=== PATIENT | female | born 1995 | race Caucasian/White ===

== ENCOUNTER 2020-08-30 07:18 | Emergency (ER) | payer OTHER ==
[~2020-08-30] VITALS: Ht 172.7 cm; Wt 72.4 kg
[2020-08-30 07:20] VITALS: BP 155/85
--- NOTE | 2020-08-30 07:54 | NUR ---
PT IN IMAGING
[2020-08-30 08:03] LABS: BASOPHILS % (AUTO) 0 % (0-1); EOSINOPHILS % (AUTO) 1 % (1-7); LYMPHOCYTES % (AUTO) 14 % (22-44); MEAN CORPUSCULAR HEMOGLOBIN 30.5 pg (27.0-34.8); MEAN CORPUSCULAR HGB CONC 33.3 g/dL (32.4-35.8); MEAN PLATELET VOLUME 8.8 fL (7.4-10.4); MONOCYTES % (AUTO) 4 % (2-9); NEUTROPHILS % (AUTO) 82 % (42-75); PLATELET COUNT 270 x10^3/uL (130-400); RED BLOOD COUNT 4.44 x10^6/uL (3.82-5.3); RED CELL DISTRIBUTION WIDTH 12.5 % (9.6-15.2)
[2020-08-30 08:04] LABS: MD NO
--- NOTE | 2020-08-30 08:20 | NUR ---
PT STATES SHE IS 11 WEEKS PREG, HAS CO SPOTTING. DENIES CRAMPING
[2020-08-30 08:52] LABS: ANION GAP 7 mmol/L (5-15); CALCIUM 9.4 mg/dL (8.5-10.1); CHLORIDE 109 mmol/L (98-107); CREATININE 0.79 mg/dL (0.55-1.02)
[2020-08-30 08:53] LABS: ALBUMIN 3.4 g/dL (3.4-5.0)
[2020-08-30 09:32] LABS: MICROSCOPIC INDICATED
== END 2020-08-30 10:22 | disposition home or self-care (01) ==
LOC: ED 07:41
DX: O20.0 Threatened abortion (principal); N30.00 Acute cystitis without hematuria; R10.2 Pelvic and perineal pain; Z3A.11 11 weeks gestation of pregnancy
CPT/HCPCS: 36415; 76801; 80048; 81001; 82040; 84702; 85025; 86901; 87086; 99284

== ENCOUNTER 2021-03-13 02:10 | Inpatient (IN) | payer BC, MEDICAID ==
[~2021-03-13] VITALS: Ht 172.7 cm; Wt 89.0 kg
[2021-03-13] MEDS ORDERED: [UNRECOGNIZED DRUG - CODE] PO (08:47)
[2021-03-13 21:25] VITALS: BP 128/87
[2021-03-13] MEDS ORDERED: TERBUTALINE 1 MG/ML, 1ML IVPush PRN (22:00)
[2021-03-13] MEDS ORDERED: FENTANYL PF 100 MCG/2ML IV PRN (22:00)
[2021-03-13] MEDS ORDERED: OXYTOCIN 30U/ 0.9% NaCL 500ML 500 ML IV PRN ×2 (22:00→22:30)
[2021-03-13] MEDS: D5%-LACTATED RINGERS 1,000 ML IV SCH (22:00)
[2021-03-13] MEDS ORDERED: ONDANSETRON 2MG/ML, 2ML IVPush PRN (22:00)
[2021-03-13] MEDS ORDERED: FENTANYL PF 100 MCG/2ML IVPush PRN (22:00)
[2021-03-13] MEDS ORDERED: PENICILLIN GK 5,000,000 UNITS in DEXTROSE 5% 100 ML IVPB ONE (22:00)
[2021-03-13] MEDS ORDERED: TERBUTALINE 1 MG/ML, 1ML SQ PRN (22:00)
[2021-03-13] MEDS ORDERED: CALCIUM CARBONATE 500 MG TAB.CHEW PO PRN (22:00)
[2021-03-13] MEDS ORDERED: MISOPROSTOL 25 MCG TABLET VG PRN (22:00)
[2021-03-13] MEDS ORDERED: OXYTOCIN 30U/ 0.9% NaCL 500ML 500 ML IV ONE (22:00)
[2021-03-13 22:15] LABS: BASOPHILS % (AUTO) 1 % (0-1); EOSINOPHILS % (AUTO) 1 % (1-7); LYMPHOCYTES % (AUTO) 23 % (22-44); MEAN CORPUSCULAR HEMOGLOBIN 31.5 pg (27.0-34.8); MEAN CORPUSCULAR HGB CONC 34.8 g/dL (32.4-35.8); MEAN PLATELET VOLUME 9.4 fL (7.4-10.4); MONOCYTES % (AUTO) 8 % (2-9); NEUTROPHILS % (AUTO) 68 % (42-75); PLATELET COUNT 248 x10^3/uL (130-400); RED BLOOD COUNT 3.98 x10^6/uL (3.82-5.3); RED CELL DISTRIBUTION WIDTH 12.8 % (9.6-15.2)
[2021-03-13 22:16] LABS: MD NO
[2021-03-13] MEDS ORDERED: LIDOCAINE 1%, 20ML ONE (22:24)
[2021-03-13] MEDS ORDERED: MISOPROSTOL 200 MCG TABLET ONE (22:24)
[2021-03-13] MEDS ORDERED: NEWBORN KIT ONE (22:24)
[2021-03-13] MEDS ORDERED: OXYTOCIN 30U/ 0.9% NaCL 500ML 500 ML ONE (22:24)
[2021-03-14] MEDS: PENICILLIN GK 2,500,000 UNITS in DEXTROSE 5% 100 ML IVPB SCH ×5 (02:00→18:00)
[2021-03-14] MEDS: LACTATED RINGERS 1,000 ML IV SCH ×5 (02:49→14:00)
[2021-03-14] MEDS ORDERED: LACTATED RINGERS 1,000 ML IVBOLUS PRN ×2 (03:00→04:00)
[2021-03-14] MEDS ORDERED: FENTANYL/BUPIV./NS/PF 250 ML EPIDCONT SCH ×2 (03:00→04:00)
[2021-03-14] MEDS ORDERED: BUPIVACAINE 0.25% ONE (03:04)
[2021-03-14] MEDS ORDERED: EPHEDRINE 50 MG/ML, 1ML IVPush PRN (04:00)
[2021-03-14] MEDS ORDERED: ONDANSETRON 2MG/ML, 2ML IVPush PRN (04:00)
[2021-03-14] MEDS ORDERED: DIPHENHYDRAMINE 50 MG/ML, 1ML IVPush PRN (04:00)
[2021-03-14] MEDS ORDERED: NALOXONE 0.4 MG/ML, 1ML IVPush PRN (04:00)
[2021-03-14] MEDS: D5%-LACTATED RINGERS 1,000 ML IV SCH ×2 (06:00→14:00)
[2021-03-14] MEDS ORDERED: MEASLES,MUMPS&RUBELLA VACC/PF 0.5 ML SQ-VACC PRN (07:00)
[2021-03-14] MEDS ORDERED: BISACODYL 10 MG SUPP PR PRN (07:00)
[2021-03-14] MEDS ORDERED: SIMETHICONE 80 MG CHEW TAB PO PRN (07:00)
[2021-03-14] MEDS ORDERED: ONDANSETRON 2MG/ML, 2ML IV PRN (07:00)
[2021-03-14] MEDS ORDERED: CALCIUM CARBONATE 500 MG TAB.CHEW PO PRN (07:00)
[2021-03-14] MEDS ORDERED: DOCUSATE 100 MG CAPSULE PO PRN (07:00)
[2021-03-14] MEDS ORDERED: OXYcodone/APAP 5/325MG TABLET PO PRN ×2 (07:00)
[2021-03-14] MEDS ORDERED: MAGNESIUM HYDROXIDE 8%, 30ML UDC PO PRN (07:00)
[2021-03-14] MEDS ORDERED: METHYLERGONOVINE 0.2 MG/ML IM PRN (07:00)
[2021-03-14] MEDS ORDERED: TRANEXAMIC ACID 100 MG/ML, 10ML IV ONE (07:00)
[2021-03-14] MEDS ORDERED: RHOGAM FROM BLOOD BANK 1 NOTE EA IM/IV ONE (07:00)
[2021-03-14] MEDS ORDERED: OXYTOCIN 10 UNITS/ML, 1ML IM PRN (07:00)
[2021-03-14] MEDS ORDERED: MISOPROSTOL 200 MCG TABLET PR PRN (07:00)
[2021-03-14] MEDS: OXYTOCIN 30U/ 0.9% NaCL 500ML 500 ML IV SCH ×8 (07:00→17:02)
[2021-03-14] MEDS: PRENATAL VIT/IRON/FA 1 EACH TABLET PO SCH (09:00)
[2021-03-14 14:45] LABS: BASOPHILS % (AUTO) 0 % (0-1); EOSINOPHILS % (AUTO) 0 % (1-7); LYMPHOCYTES % (AUTO) 11 % (22-44); MEAN CORPUSCULAR HEMOGLOBIN 30.8 pg (27.0-34.8); MEAN CORPUSCULAR HGB CONC 33.4 g/dL (32.4-35.8); MEAN PLATELET VOLUME 9.3 fL (7.4-10.4); MONOCYTES % (AUTO) 6 % (2-9); NEUTROPHILS % (AUTO) 83 % (42-75); PLATELET COUNT 208 x10^3/uL (130-400); RED BLOOD COUNT 4.29 x10^6/uL (3.82-5.3)
[2021-03-14 14:46] LABS: MD NO
[2021-03-14] MEDS: IBUPROFEN 600 MG TABLET PO PRN (15:00)
[2021-03-14 19:20] VITALS: BP 128/86
[2021-03-15 07:40] VITALS: BP 120/81
[2021-03-15] MEDS: PRENATAL VIT/IRON/FA 1 EACH TABLET PO SCH (09:28)
[2021-03-15] MEDS: IBUPROFEN 600 MG TABLET PO PRN ×2 (09:28→18:24)
[2021-03-15 20:10] VITALS: BP 127/83
[2021-03-16] MEDS: PRENATAL VIT/IRON/FA 1 EACH TABLET PO SCH (09:52)
[2021-03-16 10:00] VITALS: BP 123/77
== END 2021-03-16 12:30 | disposition home or self-care (01) | DRG 807 ==
LOC: LDIP 21:00 → 2NW 03-14 09:21
PROVIDERS: ADMIT Obstetrics & Gynecology; ATTEND Obstetrics & Gynecology
PROC: 10E0XZZ Delivery of Products of Conception, External Approach (ICD-10-PCS; principal; 2021-03-14)
PROC: 3E0P7VZ Introduction of Hormone into Female Reproductive, Via Natural or Artificial Opening (ICD-10-PCS; 2021-03-14)
PROC: 0HQ9XZZ Repair Perineum Skin, External Approach (ICD-10-PCS; 2021-03-14)
PROC: 3E0234Z Introduction of Serum, Toxoid and Vaccine into Muscle, Percutaneous Approach (ICD-10-PCS; 2021-03-14)
DX: O99.824 Streptococcus B carrier state complicating childbirth (principal); Z37.0 Single live birth; Z3A.39 39 weeks gestation of pregnancy; O70.0 First degree perineal laceration during delivery; Z20.822 Contact with and (suspected) exposure to COVID-19; Z23 Encounter for immunization
CPT/HCPCS: 36415; 85025; 86592; 86850; 86900; 87635; G0378; J2540; J3010; J7120

== ENCOUNTER 2021-03-13 08:11 | Outpatient (CLI) | payer BC, MEDICAID ==
[~2021-03-13] VITALS: Ht 172.7 cm; Wt 89.1 kg
[2021-03-13] MEDS ORDERED: [UNRECOGNIZED DRUG - CODE] PO (08:47)
== END 2021-03-13 09:00 | disposition home or self-care (01) ==
LOC: LDOP 08:11
PROVIDERS: ATTEND Obstetrics & Gynecology
DX: Z34.93 Encounter for supervision of normal pregnancy, unspecified, third trimester (principal); Z3A.39 39 weeks gestation of pregnancy
CPT/HCPCS: 59025